=== PATIENT | female | born 1990 | race Caucasian/White ===

== ENCOUNTER → 2017-11-13 | Outpatient (CLI) | payer BC ==
[~2017-11-13] MED LIST: ACET325 PO; BIRTH CONTROL PO; CEFD300 PO; CIPRO500 MG PO; CYCL10 PO; HYDACE5 PO; METPRE4DP PO; Naprosyn500 MG PO; ONDA4 PO; PHENA200 PO; PROM25 PO; Pyridium200 MG PO; SULTRIDS PO; Zofran Odt4 MG PO; Zofran Odt4 MG SL
== END ==
LOC: LAB 17:46
DX: N39.0 Urinary tract infection, site not specified (principal)
CPT/HCPCS: 87077; 87086; 87186

== ENCOUNTER 2018-01-31 21:35 | Emergency (ER) | payer BC ==
[~2018-01-31] VITALS: Ht 167.6 cm; Wt 106.1 kg
[~2018-01-31 21:35] MED LIST changes: -CEFD300 PO; -Zofran Odt4 MG PO
[2018-01-31 22:49] LABS: Bilirubin, Urine Neg (Neg); Blood, Urine 1+ (Neg); Glucose Qualitative, Urine Neg (Neg); Ketones, Urine Neg (Neg); Leukocyte Esterase, Urine 3+ (Neg); Nitrite, Urine Neg (Neg); Protein, Urine Neg (Neg); Specific Gravity, Urine 1.005 (1.003-1.022); Urobilinogen, Urine NORM (Normal); pH, Urine 6.5 (5.0-8.0)
[2018-01-31 22:54] LABS: Appearance, Urine Clear (Clear); Color, Urine Yellow (P-Yellow)
[2018-01-31 22:55] LABS: Bacteria Mod /hpf; Red Blood Cells, Urine 0-2 /hpf (0-2); Squamous Epithelial Cells Few /hpf (Few); White Blood Cells, Urine 25-50 /hpf (0-5)
[2018-01-31 23:24] LABS: BASOPHILS ABSOLUTE AUTO 0.05 K/mm3 (0.00-0.23); BASOPHILS PERCENT AUTO 1 % (0-2); EOSINOPHILS ABSOLUTE AUTO 0.14 K/mm3 (0.00-0.68); EOSINOPHILS PERCENT AUTO 2 % (0-6); Hematocrit 41.3 % (33.0-51.0); Hemoglobin 12.8 g/dL (11.5-16.0); IMMATURE GRAN ABSOLUTE AUTO 0.02 K/mm3 (0.00-0.10); IMMATURE GRAN PERCENT AUTO 0 % (0-1); LYMPHOCYTES ABSOLUTE AUTO 2.66 K/mm3 (0.84-5.20); LYMPHOCYTES PERCENT AUTO 33 % (21-46); MONOCYTES ABSOLUTE AUTO 0.59 K/mm3 (0.16-1.47); MONOCYTES PERCENT AUTO 7 % (4-13); Mean Corpuscular HGB 28.2 pg (26.0-34.0); Mean Corpuscular Volume 91 fL (80-100); Mean Platelet Volume 12.3 fL (9.1-12.4); NEUTROPHILS PERCENT AUTO 57 % (41-73); Platelet Count 255 K/mm3 (150-400); RDW Coefficient Variation 13.5 % (11.7-14.2); RDW Standard Deviation 45.4 fL (35.1-46.3); Red Blood Cell Count 4.54 M/mm3 (3.80-5.20); White Blood Cell Count 8.06 K/mm3 (4.00-11.30)
[2018-01-31 23:42] LABS: Anion Gap 7 mmol/L (6-16); Blood Urea Nitrogen 15 mg/dL (8-24); Bun/Creatinine Ratio 23.2 (12.0-20.0); CO2, Blood 25 mmol/L (21-32); Calcium, Blood 8.8 mg/dL (8.5-10.1); Chloride, Blood 110 mmol/L (98-108); Creatinine, Blood 0.65 mg/dL (0.40-1.00); Glomerular Filtration Rate >60 (60-); Glucose, Blood 97 mg/dL (70-99); Potassium, Blood 4.2 mmol/L (3.5-5.5); Sodium, Blood 142 mmol/L (136-145)
[2018-01-31] MEDS ORDERED: Zofran Odt4 MG PO (23:47)
[2018-01-31] MEDS ORDERED: CEFD300 PO (23:47)
== END 2018-01-31 23:57 | disposition home or self-care (01) ==
LOC: ER 21:35
PROVIDERS: Emergency Medicine
DX: N12 Tubulo-interstitial nephritis, not specified as acute or chronic (principal); Z88.0 Allergy status to penicillin
CPT/HCPCS: 36415; 80048; 81001; 85025; 87086; 96365; 96375; 99283; J0696; J1885; J2405; J7030

== ENCOUNTER 2019-01-26 16:11 | Emergency (ER) | payer BC ==
[~2019-01-26] VITALS: Ht 167.6 cm; Wt 95.7 kg
[~2019-01-26 16:11] MED LIST changes: +CEFD300 PO; +Zofran Odt4 MG PO
[2019-01-26] MEDS ORDERED: PROG100 PO (16:27)
[2019-01-26] MEDS ORDERED: Augmentin 875-1 EACH PO (16:37)
[2019-01-26] MEDS ORDERED: Norco 5-325 Ta1 EACH PO (16:55)
== END 2019-01-26 17:03 | disposition home or self-care (01) ==
LOC: ER 16:11
DX: K11.20 Sialoadenitis, unspecified (principal); Z88.0 Allergy status to penicillin; Z79.899 Other long term (current) drug therapy
CPT/HCPCS: 99283; J1100

== ENCOUNTER → 2019-06-05 | Outpatient (CLI) | payer BC ==
[~2019-06-05] MED LIST changes: +Augmentin 875-1 EACH PO; +Norco 5-325 Ta1 EACH PO; +PROG100 PO
== END | disposition home or self-care (01) ==
LOC: LAB SHORT 08:19 → LAB 08:19
DX: L03.115 Cellulitis of right lower limb (principal)
CPT/HCPCS: 87070; 87075; 87077; 87147; 87186; 87205

== ENCOUNTER → 2020-08-02 | Outpatient (CLI) | payer BC, OTHER ==
[~2020-08-02] MED LIST changes: +PRENATAL TABLE1 EAC2; +Veetids 500500 MG PO
[2020-08-02 17:35] LABS: BASOPHILS ABSOLUTE AUTO 0.02 K/mm3 (0.00-0.23); BASOPHILS PERCENT AUTO 0 % (0-2); EOSINOPHILS ABSOLUTE AUTO 0.04 K/mm3 (0.00-0.68); EOSINOPHILS PERCENT AUTO 1 % (0-6); Hematocrit 37.8 % (33.0-51.0); Hemoglobin 11.7 g/dL (11.5-16.0); IMMATURE GRAN ABSOLUTE AUTO 0.05 K/mm3 (0.00-0.10); IMMATURE GRAN PERCENT AUTO 1 % (0-1); LYMPHOCYTES ABSOLUTE AUTO 1.49 K/mm3 (0.84-5.20); LYMPHOCYTES PERCENT AUTO 20 % (21-46); MONOCYTES ABSOLUTE AUTO 0.29 K/mm3 (0.16-1.47); MONOCYTES PERCENT AUTO 4 % (4-13); Mean Corpuscular HGB 29.2 pg (26.0-34.0); Mean Corpuscular Volume 94 fL (80-100); Mean Platelet Volume 11.3 fL (9.1-12.4); NEUTROPHILS ABSOLUTE AUTO 5.73 K/mm3 (1.96-9.15); NEUTROPHILS PERCENT AUTO 75 % (41-73); Platelet Count 230 K/mm3 (150-400); RDW Coefficient Variation 13.2 % (11.7-14.2); RDW Standard Deviation 45.8 fL (35.1-46.3); Red Blood Cell Count 4.01 M/mm3 (3.80-5.20); White Blood Cell Count 7.62 K/mm3 (4.00-11.30)
== END | disposition home or self-care (01) ==
LOC: LAB SHORT 14:34 → LAB 14:34
PROVIDERS: Family Medicine
DX: Z34.92 Encounter for supervision of normal pregnancy, unspecified, second trimester (principal); Z3A.23 23 weeks gestation of pregnancy
CPT/HCPCS: 85025; 87086

== ENCOUNTER → 2020-08-10 | Outpatient (CLI) | payer BC, OTHER | END | disposition home or self-care (01) | LOC: LAB 10:59 → LAB SHORT 10:59 | DX: Z3A.24 24 weeks gestation of pregnancy (principal) | CPT/HCPCS: 87086 ==

== ENCOUNTER → 2020-08-14 | Outpatient (CLI) | payer BC, OTHER | END | disposition home or self-care (01) | LOC: LAB 16:33 → LAB SHORT 16:33 | DX: R30.0 Dysuria (principal) | CPT/HCPCS: 87086 ==

== ENCOUNTER 2020-11-24 04:09 | Inpatient (IN) | payer BC, OTHER ==
[~2020-11-24] VITALS: Ht 167.6 cm; Wt 115.0 kg
[2020-11-24] MEDS ORDERED: PYRI100 (04:43)
[2020-11-24] MEDS ORDERED: IRON18 MG (04:43)
[2020-11-24 05:15] LABS: BASOPHILS ABSOLUTE AUTO 0.03 K/mm3 (0.00-0.23); BASOPHILS PERCENT AUTO 0 % (0-2); EOSINOPHILS ABSOLUTE AUTO 0.05 K/mm3 (0.00-0.68); EOSINOPHILS PERCENT AUTO 1 % (0-6); Hematocrit 38.7 % (33.0-51.0); Hemoglobin 12.6 g/dL (11.5-16.0); IMMATURE GRAN ABSOLUTE AUTO 0.02 K/mm3 (0.00-0.10); IMMATURE GRAN PERCENT AUTO 0 % (0-1); LYMPHOCYTES ABSOLUTE AUTO 2.26 K/mm3 (0.84-5.20); LYMPHOCYTES PERCENT AUTO 28 % (21-46); MONOCYTES ABSOLUTE AUTO 0.61 K/mm3 (0.16-1.47); MONOCYTES PERCENT AUTO 7 % (4-13); Mean Corpuscular HGB 29.4 pg (26.0-34.0); Mean Corpuscular HGB Conc 32.6 g/dL (31.5-36.5); Mean Corpuscular Volume 90 fL (80-100); Mean Platelet Volume 11.1 fL (9.1-12.4); NEUTROPHILS ABSOLUTE AUTO 5.24 K/mm3 (1.96-9.15); NEUTROPHILS PERCENT AUTO 64 % (41-73); Platelet Count 217 K/mm3 (150-400); RDW Coefficient Variation 13.7 % (11.7-14.2); RDW Standard Deviation 45.1 fL (35.1-46.3); Red Blood Cell Count 4.28 M/mm3 (3.80-5.20); White Blood Cell Count 8.21 K/mm3 (4.00-11.30)
[2020-11-24 05:59] LABS: Influenza A, PCR NEGATIVE (NEGATIVE); Influenza B, PCR NEGATIVE (NEGATIVE); Resp Syncytial Virus, PCR NEGATIVE (NEGATIVE); SARS-Cov-2 (COVID-19) PCR, MMC NEGATIVE (NEGATIVE)
--- NOTE | 2020-11-24 09:33 | NUR ---
CORE REFERRAL FAXED TO CORE TEAM R/T PT REQUESTING REFFERAL FOR THE [facility] PROGRAM
[2020-11-24 19:51] LABS: PCO2 Cord - Venous 44.5 mmHg (40-50); PO2 Cord - Venous 22.5 mmHg (28-32)
[2020-11-25 05:19] LABS: Hematocrit 31.1 % (33.0-51.0); Hemoglobin 9.9 g/dL (11.5-16.0); Mean Corpuscular HGB Conc 31.8 g/dL (31.5-36.5); Mean Corpuscular Volume 91 fL (80-100); Platelet Count 182 K/mm3 (150-400); RDW Coefficient Variation 13.7 % (11.7-14.2); RDW Standard Deviation 45.5 fL (35.1-46.3); Red Blood Cell Count 3.41 M/mm3 (3.80-5.20); White Blood Cell Count 13.72 K/mm3 (4.00-11.30)
== END 2020-11-25 20:52 | disposition home or self-care (01) | DRG 807 ==
LOC: OBS 04:09 → BC 04:11 → OBS 04:33 → BC 04:35
PROVIDERS: ADMIT Family Medicine
PROC: 10D07Z6 Extraction of Products of Conception, Vacuum, Via Natural or Artificial Opening (ICD-10-PCS; principal; 2020-11-24)
PROC: 0KQM0ZZ Repair Perineum Muscle, Open Approach (ICD-10-PCS; 2020-11-24)
DX: O70.1 Second degree perineal laceration during delivery (principal); Z37.0 Single live birth; Z3A.39 39 weeks gestation of pregnancy; O90.81 Anemia of the puerperium; D64.9 Anemia, unspecified
CPT/HCPCS: 0241U; 36415; 51702; 82803; 85025; 85027; 86850; 86900; 86901; A9270; J1885; J2001; J2210; J2590; J3010; J7120

== ENCOUNTER → 2021-07-30 | Outpatient (CLI) | payer OTHER ==
[~2021-07-30] MED LIST changes: +APRI 28 DAY TA1 EACH; +IRON18 MG; +PYRI100
== END | disposition home or self-care (01) ==
LOC: LAB 18:12 → LAB SHORT 18:12
DX: R35.0 Frequency of micturition (principal); R39.15 Urgency of urination
CPT/HCPCS: 87086

== ENCOUNTER → 2021-08-09 | Outpatient (CLI) | payer OTHER | END | disposition home or self-care (01) | LOC: LAB 12:44 → LAB SHORT 12:44 | DX: R30.0 Dysuria (principal) | CPT/HCPCS: 87086 ==

== ENCOUNTER → 2021-09-26 | Outpatient (CLI) | payer OTHER ==
[2021-09-28 15:07] LABS: HPV 16 Negative (Negative); HPV 18 Negative (Negative); HPV OTHER HR TYPES Negative (Negative)
== END | disposition home or self-care (01) ==
LOC: LAB 12:00 → LAB SHORT 12:00
PROVIDERS: Family Medicine
DX: Z12.4 Encounter for screening for malignant neoplasm of cervix (principal)
CPT/HCPCS: 87624; G0123

== ENCOUNTER → 2021-12-27 | Outpatient (CLI) | payer OTHER ==
[2021-12-28 09:24] LABS: Candida species (DNA Probe) Negative (NEGATIVE); G. vaginalis (DNA Probe) Negative (NEGATIVE); T. vaginalis (DNA Probe) Negative (NEGATIVE)
== END | disposition home or self-care (01) ==
LOC: LAB 12:00 → LAB SHORT 12:00
PROVIDERS: Family Medicine
DX: A59.9 Trichomoniasis, unspecified (principal)
CPT/HCPCS: 87480; 87510; 87660